=== PATIENT | female | born 1980 | race Caucasian/White ===

== ENCOUNTER → 2022-09-29 | Outpatient (CLI) | payer BC, SELFPAY ==
--- NOTE | 2022-09-29 14:33 | RAD_ITS ---
INDICATION: PSORIATIC ARTHROPATHY EXAMINATION/TECHNIQUE: X-RAY - XR Chest 2 Views COMPARISON: No previous relevant examinations available for comparison.. FINDINGS: LIFE-SUPPORT AND LINES: 1. None HEART AND VESSELS: The cardiac silhouette, pulmonary vasculature have normal appearance. No evidence of congestive failure. LUNGS AND PLEURAL SPACES: Lungs are clear. No focal infiltrate, consolidation or effusions. No evidence of pneumothorax. No pulmonary mass is noted. MEDIASTINUM AND HILAR REGIONS: No masses adenopathy noted. No areas of calcification. Visualized upper airway is normal in position. BONY ELEMENTS: No acute bony changes noted. RAD/Chest PA and Lateral IMPRESSION: 1. No evidence of acute cardiopulmonary process Electronically Signed: Nicolas Fitzgerald MD at 17:49 EST ,
--- NOTE | 2022-09-29 14:33 | RAD_ITS ---
INDICATION: PSORIATIC ARTHROPATHY EXAMINATION/TECHNIQUE: X-RAY - XR Pelvis 1 or 2 Views COMPARISON: None. FINDINGS: PELVIC BONES: No displaced fracture, destructive or sclerotic lesions. Note that overlapping bowel shadows may however obscure fine detail. Sacroiliac joints are unremarkable. No widening of the pubic symphysis. HIPS: The articular structures are unremarkable. No displaced fracture seen in this frontal view. Mild marginal osteophyte formation arising from the acetabular roof. No periarticular erosions noted.. SOFT TISSUES: No soft tissue swelling or gas. RAD/Pelvis 1 or 2 Views IMPRESSION: 1. No evidence of displaced pelvic or hip fracture. Mild osteophyte formation arising from the acetabular roof. Joint space maintained, no periarticular erosions noted. Electronically Signed: Nicolas Fitzgerald MD at 17:49 EST ,
[2022-09-29 18:13] LABS: Absolute Lymphocyte Count 1.98 X10^3/uL (0.83-4.51); Absolute Neutrophil Count 9.6 X10^3/uL (2.0-7.7); Basophil# 0.05 X10^3/uL; Basophil% 0.4 % (0-1); Eosinophil# 0.12 X10^3/uL; Hematocrit 36.3 % (37-47); Hemoglobin 11.9 g/dL (12.0-15.0); Lymphocyte # 1.98 X10^3/ul (0.83-4.51); Lymphocyte % 16.2 % (19-41); Mean Corp Hgb Conc 32.8 g/dL (32-36); Mean Corpuscular Hgb 28.9 pg (27.0-32.0); Mean Corpuscular Volume 88.1 fL (81-99); Monocyte# 0.47 X10^3/uL; Monocyte% 3.8 % (0-10); NRBC Flagged by Analyzer 0 % (0-5); Neutrophil # 9.56 X10^3/uL (2.7-7.7); Neutrophil % 78.3 % (47-70); Platelet Count 211 K/mm3 (150-450); RBC Distribution Width CV 14.7 % (11.6-14.6); RBC Distribution Width SD 46.4 fl (35.1-43.9); Red Blood Count 4.12 M/mm3 (4.2-5.4); White Blood Count 12.2 K/mm3 (4.4-11.0)
[2022-09-29 18:30] LABS: ALB/GLOB Ratio 0.8 RATIO (0.9-2.4); AST(SGOT) 15 U/L (15-37); Alanine Aminotransfer ALT/SGPT 20 U/L (13-56); Albumin, Serum 3.4 g/dL (3.2-5.0); Alkaline Phosphatase 76 U/L (45-117); Anion Gap 11 (5-15); BUN 34 mg/dL (7-18); BUN/Creat Ratio 27.9 RATIO (10-20); Calcium,Total 9.1 mg/dL (8.5-10.1); Chloride 105 mmol/L (98-107); Creatinine, Serum 1.22 mg/dL (0.55-1.02); EST Glomerular Filtration Rate 51 mL/min (>60); Est Glom Filt Rate - Afr Amer 62 mL/min (>60); Globulin 4.3 g/dL (2.2-4.2); Glucose 95 mg/dL (74-106); Potassium 3.4 mmol/L (3.5-5.1); Protein, Total 7.7 g/dL (6.4-8.2); Rheumatoid Factor < 10.0 IU/mL (<15); Sodium Level 140 mmol/L (136-145)
[2022-09-29 18:59] LABS: Erythrocyte Sedimentation Rate 34 mm/hr (0-30)
[2022-09-29 19:07] LABS: Hepatitis B Surface Antibody Non-Reactive; Hepatitis B Surface Antigen Non-Reactive (Nonreactive); Hepatitis C Antibody Non-Reactive (Nonreactive)
[2022-10-01 11:08] LABS: QNTFERON TB Mitogen Value > 10.00 IU/mL (.); QNTFERON TB Nil Value 0.02 IU/mL (.); QNTFERON TB1+ Ag Value 0.06 IU/mL (.); QNTFERON TB2+ Ag Value 0.05 IU/mL (.)
[2022-10-01 16:21] LABS: ANTINUCLEAR ANTIBODIES DIRECT Negative (Negative)
[2022-10-01 16:45] LABS: CCP IgG Antibodies 3 units (0-19); QNTIFERON TB Positive Criteria Negative (Negative)
== END | disposition home or self-care (01) ==
LOC: MTLAB 14:31
PROVIDERS: PCP Student in an Organized Health Care Education/Training Program; Referring Provider Internal Medicine Rheumatology; Visit Provider Internal Medicine Rheumatology
DX: L40.59 Other psoriatic arthropathy (principal); M79.7 Fibromyalgia
CPT/HCPCS: 36415; 71046; 72170; 80053; 85025; 85652; 86038; 86140; 86200; 86431; 86480; 86706; 86803; 87340

== ENCOUNTER → 2022-11-24 | Outpatient (CLI) | payer BC, SELFPAY ==
[2022-11-24 16:00] LABS: ALB/GLOB Ratio 0.8 RATIO (0.9-2.4); AST(SGOT) 16 U/L (15-37); Alanine Aminotransfer ALT/SGPT 24 U/L (13-56); Albumin, Serum 3.2 g/dL (3.2-5.0); Alkaline Phosphatase 70 U/L (45-117); Anion Gap 7 (5-15); BUN 26 mg/dL (7-18); BUN/Creat Ratio 22.8 RATIO (10-20); Calcium,Total 8.5 mg/dL (8.5-10.1); Chloride 108 mmol/L (98-107); Creatinine, Serum 1.14 mg/dL (0.55-1.02); EST Glomerular Filtration Rate 55 mL/min (>60); Est Glom Filt Rate - Afr Amer 66 mL/min (>60); Globulin 4.1 g/dL (2.2-4.2); Glucose 95 mg/dL (74-106); Potassium 3.9 mmol/L (3.5-5.1); Protein, Total 7.3 g/dL (6.4-8.2); Sodium Level 139 mmol/L (136-145)
== END | disposition home or self-care (01) ==
LOC: MTLAB 13:54
PROVIDERS: PCP Student in an Organized Health Care Education/Training Program; Referring Provider Internal Medicine Rheumatology; Visit Provider Internal Medicine Rheumatology
DX: L40.59 Other psoriatic arthropathy (principal)
CPT/HCPCS: 36415; 80053

== ENCOUNTER → 2022-12-22 | Outpatient (CLI) | payer BC, SELFPAY ==
[2022-12-22 15:12] LABS: Absolute Lymphocyte Count 1.75 X10^3/uL (0.83-4.51); Absolute Neutrophil Count 6.2 X10^3/uL (2.0-7.7); Basophil# 0.03 X10^3/uL; Basophil% 0.4 % (0-1); Eosinophil# 0.07 X10^3/uL; Eosinophils% 0.8 % (0-5); Hematocrit 34.4 % (37-47); Hemoglobin 10.4 g/dL (12.0-15.0); Lymphocyte # 1.75 X10^3/ul (0.83-4.51); Lymphocyte % 20.6 % (19-41); Mean Corp Hgb Conc 30.2 g/dL (32-36); Mean Corpuscular Hgb 25.9 pg (27.0-32.0); Mean Corpuscular Volume 85.8 fL (81-99); Mean Platelet Vol. 11.7 fl (6.2-12.0); Monocyte% 4.7 % (0-10); NRBC Flagged by Analyzer 0 % (0-5); Neutrophil # 6.21 X10^3/uL (2.7-7.7); Neutrophil % 73.1 % (47-70); Platelet Count 221 K/mm3 (150-450); RBC Distribution Width CV 13.8 % (11.6-14.6); RBC Distribution Width SD 42.7 fl (35.1-43.9); Red Blood Count 4.01 M/mm3 (4.2-5.4); White Blood Count 8.5 K/mm3 (4.4-11.0)
[2022-12-22 15:25] LABS: ALB/GLOB Ratio 0.8 RATIO (0.9-2.4); AST(SGOT) 15 U/L (15-37); Alanine Aminotransfer ALT/SGPT 24 U/L (13-56); Albumin, Serum 3.3 g/dL (3.2-5.0); Alkaline Phosphatase 62 U/L (45-117); Anion Gap 6 (5-15); BUN 29 mg/dL (7-18); BUN/Creat Ratio 25.2 RATIO (10-20); Calcium,Total 8.7 mg/dL (8.5-10.1); Chloride 109 mmol/L (98-107); Creatinine, Serum 1.15 mg/dL (0.55-1.02); EST Glomerular Filtration Rate 54 mL/min (>60); Est Glom Filt Rate - Afr Amer 66 mL/min (>60); Globulin 3.9 g/dL (2.2-4.2); Glucose 142 mg/dL (74-106); Potassium 3.8 mmol/L (3.5-5.1); Protein, Total 7.2 g/dL (6.4-8.2); Sodium Level 139 mmol/L (136-145)
== END | disposition home or self-care (01) ==
LOC: MTLAB 13:08
PROVIDERS: PCP Student in an Organized Health Care Education/Training Program; Referring Provider Internal Medicine Rheumatology; Visit Provider Internal Medicine Rheumatology
DX: L40.59 Other psoriatic arthropathy (principal); Z79.899 Other long term (current) drug therapy
CPT/HCPCS: 36415; 80053; 85025

== ENCOUNTER → 2023-01-05 | Outpatient (CLI) | payer BC, SELFPAY ==
[2023-01-05 18:06] LABS: Internal QC Validated? YES +Cl - CLEAR BKGD; Pregnancy, Urine Negative Negative
== END | disposition home or self-care (01) ==
LOC: MTLAB 14:41
PROVIDERS: PCP Student in an Organized Health Care Education/Training Program; Referring Provider Internal Medicine Rheumatology; Visit Provider Internal Medicine Rheumatology
DX: L40.59 Other psoriatic arthropathy (principal); M79.7 Fibromyalgia; Z79.899 Other long term (current) drug therapy
CPT/HCPCS: 81025

== ENCOUNTER → 2023-02-16 | Outpatient (CLI) | payer BC, SELFPAY ==
[2023-02-16 14:34] LABS: Absolute Lymphocyte Count 1.42 X10^3/uL (0.83-4.51); Absolute Neutrophil Count 7.3 X10^3/uL (2.0-7.7); Basophil# 0.02 X10^3/uL; Basophil% 0.2 % (0-1); Eosinophil# 0.07 X10^3/uL; Eosinophils% 0.8 % (0-5); Hematocrit 33.7 % (37-47); Hemoglobin 10.2 g/dL (12.0-15.0); Lymphocyte # 1.42 X10^3/ul (0.83-4.51); Lymphocyte % 15.6 % (19-41); Mean Corp Hgb Conc 30.3 g/dL (32-36); Mean Corpuscular Hgb 26.9 pg (27.0-32.0); Mean Corpuscular Volume 88.9 fL (81-99); Mean Platelet Vol. 11.2 fl (6.2-12.0); Monocyte# 0.28 X10^3/uL; Monocyte% 3.1 % (0-10); NRBC Flagged by Analyzer 0 % (0-5); Neutrophil # 7.26 X10^3/uL (2.7-7.7); Neutrophil % 79.9 % (47-70); Platelet Count 187 K/mm3 (150-450); RBC Distribution Width CV 19.9 % (11.6-14.6); RBC Distribution Width SD 61.2 fl (35.1-43.9); Red Blood Count 3.79 M/mm3 (4.2-5.4); White Blood Count 9.1 K/mm3 (4.4-11.0)
[2023-02-16 15:38] LABS: ALB/GLOB Ratio 0.8 RATIO (0.9-2.4); AST(SGOT) 25 U/L (15-37); Alanine Aminotransfer ALT/SGPT 28 U/L (13-56); Albumin, Serum 3.1 g/dL (3.2-5.0); Alkaline Phosphatase 70 U/L (45-117); Anion Gap 9 (5-15); BUN 28 mg/dL (7-18); BUN/Creat Ratio 26.2 RATIO (10-20); Calcium,Total 8.8 mg/dL (8.5-10.1); Chloride 109 mmol/L (98-107); Creatinine, Serum 1.07 mg/dL (0.55-1.02); EST Glomerular Filtration Rate 59 mL/min (>60); Est Glom Filt Rate - Afr Amer 71 mL/min (>60); Globulin 3.9 g/dL (2.2-4.2); Glucose 148 mg/dL (74-106); Sodium Level 140 mmol/L (136-145)
== END | disposition home or self-care (01) ==
LOC: MTLAB 13:56
PROVIDERS: PCP Student in an Organized Health Care Education/Training Program; Referring Provider Internal Medicine Rheumatology; Visit Provider Internal Medicine Rheumatology
DX: L40.59 Other psoriatic arthropathy (principal); L40.8 Other psoriasis; M79.7 Fibromyalgia; Z79.899 Other long term (current) drug therapy
CPT/HCPCS: 36415; 80053; 85025

== ENCOUNTER → 2023-03-30 | Outpatient (CLI) | payer BC, SELFPAY ==
[2023-03-30 17:50] LABS: Absolute Lymphocyte Count 1.56 X10^3/uL (0.83-4.51); Absolute Neutrophil Count 5.6 X10^3/uL (2.0-7.7); Basophil# 0.03 X10^3/uL; Basophil% 0.4 % (0-1); Eosinophil# 0.11 X10^3/uL; Eosinophils% 1.4 % (0-5); Hematocrit 33.1 % (37-47); Lymphocyte # 1.56 X10^3/ul (0.83-4.51); Lymphocyte % 20.2 % (19-41); Mean Corp Hgb Conc 30.2 g/dL (32-36); Mean Corpuscular Volume 89.2 fL (81-99); Mean Platelet Vol. 11.9 fl (6.2-12.0); Monocyte# 0.37 X10^3/uL; Monocyte% 4.8 % (0-10); NRBC Flagged by Analyzer 0 % (0-5); Neutrophil # 5.64 X10^3/uL (2.7-7.7); Neutrophil % 72.8 % (47-70); Platelet Count 225 K/mm3 (150-450); RBC Distribution Width CV 16.9 % (11.6-14.6); Red Blood Count 3.71 M/mm3 (4.2-5.4); White Blood Count 7.7 K/mm3 (4.4-11.0)
[2023-03-30 18:37] LABS: ALB/GLOB Ratio 0.8 RATIO (0.9-2.4); AST(SGOT) 19 U/L (15-37); Alanine Aminotransfer ALT/SGPT 30 U/L (13-56); Albumin, Serum 3.2 g/dL (3.2-5.0); Alkaline Phosphatase 84 U/L (45-117); Anion Gap 10 (5-15); BUN 24 mg/dL (7-18); Calcium,Total 8.9 mg/dL (8.5-10.1); Chloride 109 mmol/L (98-107); EST Glomerular Filtration Rate 52 mL/min (>60); Est Glom Filt Rate - Afr Amer 63 mL/min (>60); Globulin 3.9 g/dL (2.2-4.2); Glucose 159 mg/dL (74-106); Potassium 3.6 mmol/L (3.5-5.1); Protein, Total 7.1 g/dL (6.4-8.2); Sodium Level 142 mmol/L (136-145)
== END | disposition home or self-care (01) ==
PROVIDERS: PCP Student in an Organized Health Care Education/Training Program; Referring Provider Internal Medicine Rheumatology; Visit Provider Internal Medicine Rheumatology
DX: L40.59 Other psoriatic arthropathy (principal); M79.7 Fibromyalgia; Z79.899 Other long term (current) drug therapy
CPT/HCPCS: 36415; 80053; 85025

== ENCOUNTER → 2023-06-01 | Outpatient (CLI) | payer BC, SELFPAY ==
[2023-06-01 17:37] LABS: Absolute Lymphocyte Count 1.67 X10^3/uL (0.83-4.51); Absolute Neutrophil Count 5.6 X10^3/uL (2.0-7.7); Basophil# 0.03 X10^3/uL; Basophil% 0.4 % (0-1); Eosinophil# 0.14 X10^3/uL; Eosinophils% 1.8 % (0-5); Hematocrit 32.7 % (37-47); Hemoglobin 9.9 g/dL (12.0-15.0); Lymphocyte # 1.67 X10^3/ul (0.83-4.51); Lymphocyte % 21.2 % (19-41); Mean Corp Hgb Conc 30.3 g/dL (32-36); Mean Corpuscular Hgb 25.6 pg (27.0-32.0); Mean Corpuscular Volume 84.7 fL (81-99); Mean Platelet Vol. 11.9 fl (6.2-12.0); Monocyte# 0.44 X10^3/uL; Monocyte% 5.6 % (0-10); NRBC Flagged by Analyzer 0 % (0-5); Neutrophil # 5.55 X10^3/uL (2.7-7.7); Neutrophil % 70.6 % (47-70); Platelet Count 260 K/mm3 (150-450); RBC Distribution Width CV 14.9 % (11.6-14.6); RBC Distribution Width SD 45.7 fl (35.1-43.9); Red Blood Count 3.86 M/mm3 (4.2-5.4); White Blood Count 7.9 K/mm3 (4.4-11.0)
[2023-06-01 18:13] LABS: ALB/GLOB Ratio 0.8 RATIO (0.9-2.4); AST(SGOT) 16 U/L (15-37); Alanine Aminotransfer ALT/SGPT 30 U/L (13-56); Albumin, Serum 3.4 g/dL (3.2-5.0); Alkaline Phosphatase 98 U/L (45-117); Anion Gap 9 (5-15); BUN 32 mg/dL (7-18); BUN/Creat Ratio 25.6 RATIO (10-20); Calcium,Total 8.8 mg/dL (8.5-10.1); Chloride 109 mmol/L (98-107); Creatinine, Serum 1.25 mg/dL (0.55-1.02); EST Glomerular Filtration Rate 49 mL/min (>60); Est Glom Filt Rate - Afr Amer 60 mL/min (>60); Globulin 4.1 g/dL (2.2-4.2); Glucose 120 mg/dL (74-106); Potassium 3.3 mmol/L (3.5-5.1); Protein, Total 7.5 g/dL (6.4-8.2); Sodium Level 142 mmol/L (136-145)
== END | disposition home or self-care (01) ==
PROVIDERS: PCP Student in an Organized Health Care Education/Training Program; Referring Provider Internal Medicine Rheumatology; Visit Provider Internal Medicine Rheumatology
DX: L40.59 Other psoriatic arthropathy (principal); L40.8 Other psoriasis; Z79.899 Other long term (current) drug therapy
CPT/HCPCS: 36415; 80053; 85025

== ENCOUNTER → 2023-09-21 | Outpatient (CLI) | payer BC, SELFPAY ==
[2023-09-21 17:50] LABS: Absolute Lymphocyte Count 1.65 X10^3/uL (0.83-4.51); Absolute Neutrophil Count 7.8 X10^3/uL (2.0-7.7); Basophil# 0.03 X10^3/uL; Basophil% 0.3 % (0-1); Eosinophil# 0.07 X10^3/uL; Eosinophils% 0.7 % (0-5); Hematocrit 33.3 % (37-47); Hemoglobin 9.4 g/dL (12.0-15.0); Lymphocyte # 1.65 X10^3/ul (0.83-4.51); Lymphocyte % 16.4 % (19-41); Mean Corp Hgb Conc 28.2 g/dL (32-36); Mean Corpuscular Hgb 22.8 pg (27.0-32.0); Mean Corpuscular Volume 80.8 fL (81-99); Mean Platelet Vol. 11.9 fl (6.2-12.0); Monocyte# 0.51 X10^3/uL; Monocyte% 5.1 % (0-10); NRBC Flagged by Analyzer 0 % (0-5); Neutrophil # 7.76 X10^3/uL (2.7-7.7); Neutrophil % 77.1 % (47-70); Platelet Count 233 K/mm3 (150-450); RBC Distribution Width CV 15.9 % (11.6-14.6); RBC Distribution Width SD 46.5 fl (35.1-43.9); Red Blood Count 4.12 M/mm3 (4.2-5.4); White Blood Count 10.1 K/mm3 (4.4-11.0)
[2023-09-21 17:57] LABS: ALB/GLOB Ratio 0.8 RATIO (0.9-2.4); AST(SGOT) 13 U/L (15-37); Alanine Aminotransfer ALT/SGPT 19 U/L (13-56); Albumin, Serum 3.2 g/dL (3.2-5.0); Alkaline Phosphatase 92 U/L (45-117); Anion Gap 8 (5-15); BUN 18 mg/dL (7-18); BUN/Creat Ratio 17.8 RATIO (10-20); Calcium,Total 8.9 mg/dL (8.5-10.1); Chloride 109 mmol/L (98-107); Creatinine, Serum 1.01 mg/dL (0.55-1.02); EST Glomerular Filtration Rate 63 mL/min (>60); Est Glom Filt Rate - Afr Amer 76 mL/min (>60); Glucose 134 mg/dL (74-106); Protein, Total 7.2 g/dL (6.4-8.2); Sodium Level 142 mmol/L (136-145)
== END | disposition home or self-care (01) ==
PROVIDERS: PCP Student in an Organized Health Care Education/Training Program; Referring Provider Internal Medicine Rheumatology; Visit Provider Internal Medicine Rheumatology
DX: L40.59 Other psoriatic arthropathy (principal); M79.7 Fibromyalgia; Z79.899 Other long term (current) drug therapy
CPT/HCPCS: 36415; 80053; 85025

== ENCOUNTER → 2024-01-04 | Outpatient (CLI) | payer BC, SELFPAY ==
[2024-01-04 15:24] LABS: Absolute Lymphocyte Count 1.62 X10^3/uL (0.83-4.51); Absolute Neutrophil Count 6.1 X10^3/uL (2.0-7.7); Basophil# 0.03 X10^3/uL; Basophil% 0.4 % (0-1); Eosinophil# 0.11 X10^3/uL; Eosinophils% 1.3 % (0-5); Hematocrit 31.8 % (37-47); Hemoglobin 9.2 g/dL (12.0-15.0); Lymphocyte # 1.62 X10^3/ul (0.83-4.51); Lymphocyte % 19.4 % (19-41); Mean Corp Hgb Conc 28.9 g/dL (32-36); Mean Corpuscular Volume 79.5 fL (81-99); Mean Platelet Vol. 11.5 fl (6.2-12.0); Monocyte# 0.52 X10^3/uL; Monocyte% 6.2 % (0-10); NRBC Flagged by Analyzer 0 % (0-5); Neutrophil # 6.06 X10^3/uL (2.7-7.7); Neutrophil % 72.3 % (47-70); Platelet Count 234 K/mm3 (150-450); RBC Distribution Width CV 15.6 % (11.6-14.6); RBC Distribution Width SD 44.7 fl (35.1-43.9); White Blood Count 8.4 K/mm3 (4.4-11.0)
[2024-01-04 16:13] LABS: ALB/GLOB Ratio 0.9 RATIO (0.9-2.4); AST(SGOT) 20 U/L (15-37); Alanine Aminotransfer ALT/SGPT 29 U/L (13-56); Albumin, Serum 3.3 g/dL (3.2-5.0); Alkaline Phosphatase 79 U/L (45-117); Anion Gap 7 (5-15); BUN 20 mg/dL (7-18); BUN/Creat Ratio 21.6 RATIO (10-20); Calcium,Total 9.1 mg/dL (8.5-10.1); Chloride 108 mmol/L (98-107); Creatinine, Serum 0.92 mg/dL (0.55-1.02); EST Glomerular Filtration Rate 70 mL/min (>60); Est Glom Filt Rate - Afr Amer 84 mL/min (>60); Globulin 3.6 g/dL (2.2-4.2); Glucose 161 mg/dL (74-106); Potassium 3.5 mmol/L (3.5-5.1); Protein, Total 6.9 g/dL (6.4-8.2); Sodium Level 142 mmol/L (136-145)
== END | disposition home or self-care (01) ==
LOC: MTLAB 13:44
PROVIDERS: PCP Student in an Organized Health Care Education/Training Program; Referring Provider Internal Medicine Rheumatology; Visit Provider Internal Medicine Rheumatology
DX: L40.59 Other psoriatic arthropathy (principal); M79.7 Fibromyalgia; Z79.899 Other long term (current) drug therapy
CPT/HCPCS: 36415; 80053; 85025

== ENCOUNTER → 2024-01-11 | Outpatient (CLI) | payer BC, SELFPAY ==
[2024-01-11 17:52] LABS: Hematocrit 31.9 % (37-47); Hemoglobin 9.3 g/dL (12.0-15.0); Mean Corp Hgb Conc 29.2 g/dL (32-36); Mean Corpuscular Hgb 22.7 pg (27.0-32.0); Mean Corpuscular Volume 77.8 fL (81-99); Mean Platelet Vol. 11.5 fl (6.2-12.0); Platelet Count 251 K/mm3 (150-450); RBC Distribution Width CV 15.7 % (11.6-14.6); RBC Distribution Width SD 43.5 fl (35.1-43.9); White Blood Count 9.9 K/mm3 (4.4-11.0)
[2024-01-11 18:15] LABS: Microalbumin,Random Urine 15.2 mg/L (NO RANGE EST.); Microalbumin:Creatinine Ratio 14.9 mg/g CRE (<30 mg/g CRE)
[2024-01-11 18:29] LABS: ALB/GLOB Ratio 0.9 RATIO (0.9-2.4); AST(SGOT) 16 U/L (15-37); Alanine Aminotransfer ALT/SGPT 25 U/L (13-56); Albumin, Serum 3.3 g/dL (3.2-5.0); Alkaline Phosphatase 81 U/L (45-117); Anion Gap 7 (5-15); BUN 22 mg/dL (7-18); BUN/Creat Ratio 23.6 RATIO (10-20); Calcium,Total 8.6 mg/dL (8.5-10.1); Chloride 107 mmol/L (98-107); Cholesterol 147 mg/dL (200); Creatinine, Serum 0.93 mg/dL (0.55-1.02); EST Glomerular Filtration Rate 69 mL/min (>60); Est Glom Filt Rate - Afr Amer 83 mL/min (>60); Ferritin 11 ng/mL (8-252); Globulin 3.7 g/dL (2.2-4.2); Glucose 106 mg/dL (74-106); High Density Lipoprotein 34 mg/dL; Potassium 3.5 mmol/L (3.5-5.1); Sodium Level 139 mmol/L (136-145); Triglycerides 275 mg/dL; Very Low Density Lipoprotein 55 mg/dL (5-40)
[2024-01-11 18:31] LABS: Hemoglobin A1c 5.5 % (3.8-5.6)
[2024-01-13 16:10] LABS: QNTFERON TB Mitogen Value > 10.00 IU/mL (.); QNTFERON TB Nil Value 0.04 IU/mL (.); QNTFERON TB1+ Ag Value 0.08 IU/mL (.); QNTFERON TB2+ Ag Value 0.07 IU/mL (.); QNTIFERON TB Positive Criteria Negative (Negative)
== END | disposition home or self-care (01) ==
PROVIDERS: PCP Student in an Organized Health Care Education/Training Program; Referring Provider Internal Medicine Rheumatology; Visit Provider Internal Medicine Rheumatology
DX: I10 Essential (primary) hypertension (principal); L40.59 Other psoriatic arthropathy; E61.1 Iron deficiency; M79.7 Fibromyalgia; L40.8 Other psoriasis; Z79.899 Other long term (current) drug therapy
CPT/HCPCS: 36415; 80053; 80061; 82043; 82570; 82728; 83036; 85027; 86480

== ENCOUNTER 2025-01-13 08:00 | Day surgery (SDC) | payer BC, SELFPAY ==
--- NOTE | 2025-01-11 12:09 | PAT.ANESEVAL ---
Pre-Assessment Diagnosis/Proposed Procedure Planned Operative Procedure(s): KINDER PROCEDURE OF THE RIGHT FOOT AND RIGHT LATERAL ANKLE STABILIZATION. HARVEST OF BONE MARROW ASPIRATE CONCENTRATE Anesthesia History Anesthesia History - utilization management um nurse: Anesthesia History - utilization management um nurse Hx Hospitalization No 01/11/25 11:12 Any Problems With Anesthesia No 01/11/25 11:12 Cholinesterase deficiency No 01/11/25 11:12 You/Your Family Experience No 01/11/25 11:12 fever (hyperthermia) with Relationship Recent Exposure to Contagious Disease Does patient have nerve No 01/11/25 11:12 stimulator Patient instructed to have device shut off --Does patient have Pacemaker or ICD? When Was Last Pacemaker Check QUESTION #4 FULL TEXT: You/Your Family Experience fever (hyperthermia) with Anesthesia Last Oral Intake Last Oral intake: Last Oral Intake NPO since Meds taken in AM with sips of water? 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 - utilization management um nurse: PONV - utilization management um nurse Female Yes 01/11/25 11:12 HX of Motion Sickness No 01/11/25 11:12 HX of N/V After Surgery No 01/11/25 11:12 Non-Smoker Yes 01/11/25 11:12 Duration of Surgery greater Yes 01/11/25 11:12 than 60 minutes Number of Risk Factors 3 01/11/25 11:12 PONV Score Moderate Risk 01/11/25 11:12 Respiratory Assessment Respiratory Assessment - utilization management um nurse: Respiratory Tract Infection Hx - utilization management um nurse Hx Respiratory Tract Infection No 01/11/25 11:12 STOP Sleep Apnea STOP Sleep Apnea - utilization management um nurse: STOP Sleep Apnea - utilization management um nurse Hx Hypertension Yes: CONTROLLED WITH MED 01/11/25 11:12 Hx Sleep Apnea No 01/11/25 11:12 CPAP BIPAP Do you snore loudly (louder No 01/11/25 11:12 than talking or can be heard Do you often feel tired/ Yes 01/11/25 11:12 fatigued/ sleepy during daytime? Has anyone observed you stop No 01/11/25 11:12 breathing during sleep? STOP Results Positive 01/11/25 11:12 QUESTION #5 FULL TEXT : Do you snore loudly (louder than talking or can be heard through closed doors)? 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 Specify any problems Hx of Preganancy in last 3 No 01/11/25 11:12 Months Nurse Filling Out Transfusion DSCHRIBER 01/11/25 11:12 & Questions: Date: 01/11/25 01/11/25 11:12 Time: 11:13 01/11/25 11:12 Patient unable to answer at this time (ie. confused, unrespo /Reproduction History /Reproductive History - utilization management um nurse: /Reproductive Hx- utilization management um nurse Hx Now Gestational Age (in weeks): EDC: Hx Hx Para Hx Section SAB No 01/11/25 11:12 PFSH Medical History (Updated 01/11/25 @ 11:15 by Gayatri Bingham) Cardiology follow-up encounter Wears glasses Chipped tooth Depression Anxiety Diabetes Psoriatic arthritis Anemia High cholesterol Back pain Headache Gastric reflux Non-smoker History of pain when walking History of echocardiogram Hypertension Home Medications ?Medication ?Instructions ?Recorded ?Last Taken ?Type amlodipine 5 mg tablet 5 [place] 29901/02/25 Unknown History atorvastatin 10 mg tablet 10 mg PO 129901/02/25 Unknown History ferrous sulfate 325 mg (65 mg 325 [place] PO 29901/02/25 Unknown History iron) tablet (FeroSul) hydrochlorothiazide 25 mg tablet 25 mg PO 129901/02/25 Unknown History losartan 100 mg tablet 100 mg PO 129901/02/25 Unknown History omeprazole 40 mg capsule,delayed 40 mg PO 29901/02/25 Unknown History release spironolactone 25 mg tablet 25 mg PO 129901/02/25 Unknown History venlafaxine 225 mg tablet,extended 225 mg PO 129901/02/25 Unknown History release 24 hr Allergy/AdvReac Type Severity Reaction Status Date / Time Hand 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 Sinus rhythm 99 bpm. Echo (EF%) pertinent findings: 01/16/2020. EF 55 to 60%. Normal wall motion. Recommendation Anesthesia Recommendation Anesthesia recommendation: OPTIMIZED for anesthesia
[2025-01-13] VITALS (14 sets, daily range): BP systolic 126–150; BP diastolic 58–99; PULSE 87–115; RESP 16–18; TEMP 36.2–37.1; O2SAT 82–99; BMI 42.7
[2025-01-13] MEDS: Lactated Ringers 1,000 ML 15 ML IV (08:30)
[2025-01-13 08:40] LABS: Internal QC Validated? YES +Cl - CLEAR BKGD; Pregnancy, Urine Negative Negative
--- NOTE | 2025-01-13 08:45 | PRE.ANES_ITS ---
ASA Classification* ASA Classification ASA Classification: 3 Assessment & Plan Anesthesia* Anesthesia Assessment Anesthesia Assessment: Discussed sedation and/or anesthesia options, risks, benefits, and alternatives with patient/parents/legal guardian/POA. Questions invited. The patient/parents/legal guardian/POA seems to understand and agrees to proceed with anesthesia plan. Reviewed the physical assessment, medical history, allergy history and patient home medications list prior to surgery/procedure/anesthetic and documented any changes. Performed airway and anesthesia risk assessments. Anesthesia Type Anesthesia Type: General (RSI/Glidescope) and Block (Postop Block) Anesthesia Focused Assessment* Temperature: 98.7 F Pulse Rate: 115 Blood Pressure: 150/96 Respiratory Rate: 16 Pulse Ox: 98 Airway Assessment Mouth opens: >3 cm Mallampati Score: III Focused Labs Anesthesia Preop lab: CBC WBC 9.9 K/mm3 (4.4-11.0) 01/11/24 14:18 01/11/24 RBC 4.10 M/mm3 (4.2-5.4) L 01/11/24 14:18 01/11/24 Hgb 9.3 g/dL (12.0-15.0) L 01/11/24 14:18 01/11/24 Hct 31.9 % (37-47) L 01/11/24 14:18 01/11/24 Plt Count 251 K/mm3 (150-450) 01/11/24 14:18 01/11/24 CHEMISTRY Potassium 3.5 mmol/L (3.5-5.1) 01/11/24 14:18 01/11/24 Sodium 139 mmol/L (136-145) 01/11/24 14:18 01/11/24 BUN 22 mg/dL (7-18) H 01/11/24 14:18 01/11/24 Creatinine 0.93 mg/dL (0.55-1.02) 01/11/24 14:18 01/11/24 Glucose 106 mg/dL (74-106) 01/11/24 14:18 01/11/24 COAG Urine Test Negative Negative 01/13/25 08:15 01/13/25 Pre-Assessment Diagnosis/Proposed Procedure Planned Operative Procedure(s): KINDER PROCEDURE OF THE RIGHT FOOT AND RIGHT LATERAL ANKLE STABILIZATION. 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 When Was Last Pacemaker Check QUESTION #4 FULL TEXT: You/Your Family Experience fever (hyperthermia) with Anesthesia Last Oral Intake Last Oral intake: Last Oral Intake NPO since 00:00 01/13/25 08:37 Meds taken in AM with sips of No 01/13/25 08:37 water? 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: PONV - custom shoe designer and maker Female Yes 01/11/25 11:12 HX of Motion Sickness No 01/11/25 11:12 HX of N/V After Surgery No 01/11/25 11:12 Non-Smoker Yes 01/11/25 11:12 Duration of Surgery greater Yes 01/11/25 11:12 than 60 minutes Number of Risk Factors 3 01/11/25 11:12 PONV Score Moderate Risk 01/11/25 11:12 Height & Weight Height & Weight: Anesthesia: Height & Weight Height 5 ft 4 in 01/13/25 08:37 Weight: 112.945 kg 01/13/25 08:37 Body Mass Index (BMI) 42.7 01/13/25 08:37 Respiratory Assessment Respiratory Assessment - custom shoe designer and maker: Respiratory Tract Infection Hx - custom shoe designer and maker Hx Respiratory Tract Infection No 01/11/25 11:12 STOP Sleep Apnea STOP Sleep Apnea - custom shoe designer and maker: STOP Sleep Apnea - custom shoe designer and maker Hx Hypertension Yes: CONTROLLED WITH MED 01/11/25 11:12 Hx Sleep Apnea No 01/11/25 11:12 CPAP BIPAP Do you snore loudly (louder No 01/11/25 11:12 than talking or can be heard Do you often feel tired/ Yes 01/11/25 11:12 fatigued/ sleepy during daytime? Has anyone observed you stop No 01/11/25 11:12 breathing during sleep? STOP Results Positive 01/11/25 11:12 QUESTION #5 FULL TEXT : Do you snore loudly (louder than talking or can be heard through closed doors)? 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 Specify any problems Hx of Preganancy in last 3 No 01/11/25 11:12 Months Nurse Filling Out Transfusion DSCHRIBER 01/11/25 11:12 & Questions: Date: 01/11/25 01/11/25 11:12 Time: 11:13 01/11/25 11:12 Patient unable to answer at this time (ie. confused, unrespo /Reproduction History /Reproductive History - custom shoe designer and maker: /Reproductive Hx- custom shoe designer and maker Hx Now Gestational Age (in weeks): EDC: Hx Hx Para Hx Section SAB No 01/11/25 11:12 Active Medications Active Medications: Current Medications Generic Name Dose Route Start Last Admin Trade Name Freq PRN Reason Stop Dose Admin Cefazolin Sodium 2 gm/ Sodium 110 mls @ 150 mls/hr 01/13/25 09:45 Chloride IV 01/13/25 10:28 INTRAOP ONE Lactated Ringer's 1,000 mls @ 15 mls/hr 01/13/25 08:30 01/13/25 08:30 IV 15 mls/hr .Q48H TAJ Administration PFSH Medical History Cardiology follow-up encounter Wears glasses Chipped tooth Depression Anxiety Diabetes Psoriatic arthritis Anemia High cholesterol Back pain Headache Gastric reflux Non-smoker History of pain when walking History of echocardiogram Hypertension Home Medications ?Medication ?Instructions ?Recorded ?Last Taken ?Type amlodipine 5 mg tablet 5 [place] PO 03001/02/25 History atorvastatin 10 mg tablet 10 mg PO 129901/02/2501/12 History ferrous sulfate 325 mg (65 mg 325 [place] 29901/02/25 01/12/25 History iron) tablet (FeroSul) hydrochlorothiazide 25 mg tablet 25 mg PO 129901/12/25 History losartan 100 mg tablet 100 mg PO 129901/02/25/01/22 History omeprazole 40 mg capsule,delayed 40 [place] 29901/12/25 History release spironolactone 25 mg tablet 25 mg PO 129901/02/25 History venlafaxine 225 mg tablet,extended 225 mg PO 01/2201/12/25 History release 24 hr Allergy/AdvReac Type Severity Reaction Status Date / Time Hand 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
[2025-01-13] MEDS: Cefazolin 2 GM in 0.9% Normal Saline (100mL Bag) 100 ML IV (09:40)
[2025-01-13] MEDS: Bupivacaine Mpf 0.5% 30 ML VIAL (09:40)
--- NOTE | 2025-01-13 09:45 | RAD_ITS ---
PROCEDURE: FOOT 2 VIEWS 01/13/2025 REASON FOR EXAM: KIDNER PROCEDURE OF RIGHT FOOT, HARVEST OF BONE MARROW TECHNIQUE: Fluoroscopy with 9 spot images right foot FINDINGS: Fluoroscopy time 106.9 seconds Cumulative dose 2.65 mGy 9 spot images with surgical Weitlaner retractor at the medial hind midfoot. Please see operative report for further detail. RAD/Foot 2 Views IMPRESSION: Fluoroscopy as above Reading Location: [id number]
[2025-01-13] MEDS: Thrombin 5,000 IU Kit (PSA) 5,000 IU Vial 5000 IU TOPICAL (09:50)
[2025-01-13] MEDS: Calcium Chloride 1 GM/10 ML Syringe (09:50)
[2025-01-13] MEDS: Heparin 10,000 UNITS/10 ML Vial 10000 UNITS (09:50)
--- NOTE | 2025-01-13 11:25 | PCM.OPRPT ---
Problems Associated Problem List Diagnoses (1) Other instability, right ankle: (2) Posterior tibial tendinitis, right leg: Operative Report (Standard) Operative Information Date of Procedure: 01/13/25 Pre-Operative Diagnosis: 1. Ankle instability, right lower extremity 2. Posterior tibial tendinitis, right lower extremity Post-Operative Diagnosis: Same as preoperative diagnosis Surgery/Procedure Performed: Procedure #1: Bone marrow aspirate concentrate harvest, right lower extremity Procedure #2: Kidner procedure, right lower extremity Procedure #3. Lateral ankle stabilization, right lower extremity ophthalmic surgical assistant: Yes Operations Technician: Hoa Rodriguez Tasks completed by assistant golf professional: Closing Additional acute care nursing assistant?: No Type of Anesthesia: General/Regional and Local RN Documented Start/Stop Times: Operation Date: 01/13/25 09:45 Case Time Into Pre-Op 01/13/25 08:06 Out of Pre-Op 01/13/25 09:28 Anesthesia Start 01/13/25 09:30 Into Room 01/13/25 09:30 Procedure Start 01/13/25 09:50 Procedure End 01/13/25 11:47 Anesthesia End 01/13/25 11:51 Out of Room 01/13/25 11:51 Into Recovery 01/13/25 12:00 Out of Recovery 01/13/25 14:06 Into Phase II Recovery 01/13/25 14:07 Out of Phase II 01/13/25 15:01 Procedure Start Time: 09:50 Procedure Stop Time: 11:47 Select all DRAINS/GRAFTS/IMPLANTS that apply: Tissue Tissue details: Bone marrow aspirate concentrate, 1 cc via flow and Implanted device Implanted device details: CitraFix anchors 3.5 mm and 2.9 mm Special Medications: For anesthesia Estimated Blood Loss: 35 cc Fluids Replaced: Per anesthesia Specimen collected: No Description of surgery: Indications For Operation: Mrs. Mahan is a 44-year-old who was admitted to [facility] for elective surgery to the right lower extremity. Patient was seen in private office for surgical consultation after advanced imaging showed concern for posterior tibial tendon tendinosis as well as ATFL tear. Patient has been suffering from right lower extremity ankle pain for some time. She has exhausted all conservative treatment consisting of shoe gear modification, bracing, steroid injections, [id number] pain medication and home physical therapy. Due to failing conservative treatment it was deemed necessary at this time due to the findings on the MRI and the patient's continued pain to move forward with the Kidner procedure and ATFL repair to the right lower extremity. Due to consistent pain to right lower extremity it was deemed necessary at this time to take the patient the operating room to perform the above procedures to help get the patient back on her feet and help heal her constant pain. The nature of the problem, anticipated procedures, postop recovery/convalences and risk/complications include but not limited to infection, wound healing complications, digital amputation, hypertrophic scarring, numbness, tingling, chronic pain, CRPS, over and under correction, recurrence of deformity, DVT and or PE and the need for further surgery have been discussed in great detail with the patient. All questions have been answered to the patient's satisfaction. There are no guarantees given as to the outcome of the procedure. Description of Procedure: Under mild sedation, the patient was brought into the operating room and placed on the operating table in supine position. Once the patient was under general anesthesia with endotracheal tube, the right lower extremity was blocked using approximately 20 cc 0.5% Marcaine plain. Patient will save a popliteal block in the PACU after the procedure per anesthesia. Please see anesthesia notes for further information. Next, a well-padded thigh tourniquet was applied to the right lower extremity. Next, the right lower extremity was prepped and draped in normal aseptic manner. Next, a timeout was then undertaken verifying the correct patient, extremity, visibility of preoperative markings, availability of the equipment. Next, attention was directed to the right lower extremity. Using a 4 inch Esmarch, right lower extremity was exsanguinated and elevated to 60 degrees for 1 minute. Procedure #1: Bone marrow aspirate concentrate harvest, right lower extremity Next, attention was directed to the lateral aspect of the right heel. Using a Jamshidi needle and mallet, the Jamshidi needle was inserted to the lateral wall of the calcaneus without incident. Approximately 40 to 45 cc of bone marrow aspirate concentrate was harvested, passed the back table to be used later on in the procedure. The penetration area of the needle was flushed and closed with 3-0 nylon in simple erupted suture technique. Procedure #2: Kidner procedure, right lower extremity Next, attention was directed to the medial aspect of the right foot at the level of the accessory navicular. Large C-arm fluoroscopy was used to marilia out the incision to confirm location. Once confirmed, sterile skin marker was used to make a incision line across the posterior tibial tendon encompassing the accessory navicular bone. Using a #15 blade a full-thickness edge down to subcutaneous tissue was performed. Continued blunt dissection carried down to the level of the os naviculare which was identified as a gorilla ossicle. The bone was very soft with attachment of the posterior tibial tendon. Posterior tibial tendon was reflected down to expose the accessory bone. Using a sagittal saw on #111 blade an osteotomy was performed removing approximately 25% of the accessory navicular. There showed less than 30% uncovering of the TN joint after removal. Next 2 implants, Citra fix 3.5 mm and 2.9 mm implants were placed in the newly cut navicular per the chief resource officer recommendation with the rep in the room. Attempt was to reapproximate the posterior tibial tendon but was too short due to the size of the navicular that was removed. The posterior tibial tendon was lengthened with a dorsal and inferior incision allowing approximately 5 mm of length achieved. Using the #2 FiberWire that was in the implants the posterior tibial tendon was reapproximated and sutured into place using double hand suture technique as well as retubularized and the tendon and hand tying back on the insertion. The foot had a plantarflexion of the inversion attitude after placement. The incision was flushed with copious ounce normal saline. Procedure #3. Lateral ankle stabilization, right lower extremity Next, attention was directed to the lateral ankle at the level of the fibula. Using a [place] and large C-arm fluoroscopy the superior border of the fibula was marked out. Once identified the sterile skin marker was used to line out the incision. A #15 blade was used to make a full-thickness incision down to subcutaneous tissue. Continued blunt dissection was carried down to the level of the periosteum. Using the [place] a pocket was made and advanced superiorly to allow a safe area to open the periosteum to create a flap. The face of the fibula was identified and roughed up using a rongeur and hand rasp. The area incision was flushed with copious normal saline. Using a ruler and skin marker 2 locations were mapped out 5 mm from the [place] and then 1 cm from the initial implant were made with sterile skin marker. Next, the 3.5 mm suture fix implants x 2, with a #2 FiberWire, were implanted into the fibula per the chief resource officer's recommendations with the rep in the room. Next the Brostr?m was performed using pants over vest suture technique which was also hand tied in place. Next, the Mcgrath modification was performed proximally to encompass the inferior retinaculum to allow for a more stable repair. Next, the ankle was stressed and showed no evidence of talar tilt as it did prior to the procedure which was approximately greater than 5 degrees. Again the incision was flushed with copious normal saline. The posterior tibial tendon sheath was reapproximated closed using 2-0 Vicryl in a running locking suture technique. The subcutaneous layer on the medial side was reapproximated closed using 3-0 Vicryl and running locking suture technique. Next the lateral incision was reapproximated closed deeply using 2-0 Vicryl and running locking suture technique. The subcutaneous layer was reapproximated and closed using 3-0 Vicryl in running locking suture technique. Next, the right thigh tourniquet was deflated at this time and reperfusion was noted instantly to the right lower extremity. The skin was reapproximated and closed both incisions with 3-0 nylon in simple interrupted suture technique. The bone marrow aspirate concentrate was injected at the level of the posterior tibial tendon insertion and at the level of the ATFL and ankle without incident. PPP plasma was sprayed across all incisions. 2 cc of via flow was injected to both incisions to help with healing and decrease scar formation. The right lower extremities were cleaned and patted dry. All incisions were dressed with Betadine soaked Adaptic, dry sterile dressing and a double layer Cardenas AO splint in slight dorsiflexion with inversion due to the posterior tibial tendon repair was donned to the right lower extremity. The patient tolerated the procedure and anesthesia well and apparent satisfactory condition and was transported to the PACU for further monitoring prior to discharge home. Vital signs stable and vascular status intact to all digits bilateral. Post Operative Plan: Weightbearing: Nonweightbearing to the right lower extremity. Full weightbearing left lower extremity. Nonweightbearing will be assisted with crutches. Antibiotics: 2 g Ancef through the IV DVT Prophylaxis: 81 mg aspirin Delgado: None Dressing: PPP spray, Betadine soaked Adaptic, dry sterile dressing double layer Cardenas AO splint, right lower extremity X-Rays: Post-operative films taken on the operating room. Pain Medication: Oxycodone 5 mg, Tylenol 1000 mg Follow-up: Patient will follow-up in 1 week for dressing change in private office with Dr. Abad. Surgical Findings: 1. Large accessory navicular that was encompassing approximately 1 cm of the posterior tibial tendon. This made reattachment difficult and had to lengthen the posterior tibial tendon and applied an extra anchor to allow for better attachment of the insertion of the posterior tibial tendon. Overall satisfactory repair in anatomic position. 2. Stressing of the ankle the right lower extremity showed greater then 5 degrees of instability to the ankle. After implantation and repair of the ATFL with the Mcgrath modification there showed no ankle instability when the ankle was stressed. Complications Complications: No Admit VTE Documentation VTE Present on Admission: No VTE Mechan Device Prophylaxis: SCD's VTE Pharm Prophylaxis ordered?: Yes
--- NOTE | 2025-01-13 11:59 | PCM.POST.ANE ---
Anesthesia: Postop Eval I Current Vital Signs Temperature: 98.4 F Pulse Rate: 92 Blood Pressure: 132/82 Respiratory Rate: 16 Pulse Ox: 93 Oxygen Delivery Method: Nasal Cannula Oxygen Flow Rate (L/min): 2 Assessment Airway patent: Yes Spontaneous unlabored respirations: Yes Mental status: Awake nausea: No Vomiting: No Anesthesia Complication: No Fluid Hydration Crystalloid volume administer (ml): 1,400 Total IV fluid infused: 1,400 Progress Note Anesthesia document: Postop Eval 1 completed: Yes
[2025-01-13] MEDS: Ipratropium/Albuterol Sulfate 3 ML AMPUL.NEB INHALATION (12:49)
--- NOTE | 2025-01-13 12:57 | POSTOPAN2_ITS ---
Anesthesia Postop Eval I Sum Postop Eval Completion status Anesthesia document: Postop Eval 1 completed: Yes Anesthesia Postop Eval I Summary Anesthesia Postop Eval I Summary: Anesthesia Postop Eval I: Assessment Summary Airway patent Yes 01/13/25 12:00 [email or web address] Spontaneous unlabored Yes 01/13/25 12:00 [email or web address] respirations Mental status Awake 01/13/25 12:00 [email or web address] nausea No 01/13/25 12:00 [email or web address] Vomiting No 01/13/25 12:00 [email or web address] Anesthesia Postop Eval I: Fluid Summary Crystalloid volume administer 1,400 01/13/25 12:00 [email or web address] (ml) Colloids volume administered ( ml) Blood Product volume administered (ml) Total IV fluid infused 1,400 01/13/25 12:00 [email or web address] Anesthesia Postop Eval I: Summary Notes Anesthesia Complication No 01/13/25 12:00 [email or web address] Anesthesia Complication Comment: Post-operative progress note Anesthesia: Postop Eval II Evaluation Mental status: Awake Pain Level: 0 nausea: No Vomiting: No
--- NOTE | 2025-01-13 12:57 | PCM.POSTANE2 ---
Anesthesia Postop Eval I Sum Postop Eval Completion status Anesthesia document: Postop Eval 1 completed: Yes Anesthesia Postop Eval I Summary Anesthesia Postop Eval I Summary: Anesthesia Postop Eval I: Assessment Summary Airway patent Yes 01/13/25 12:00 [email or web address] Spontaneous unlabored Yes 01/13/25 12:00 [email or web address] respirations Mental status Awake 01/13/25 12:00 [email or web address] nausea No 01/13/25 12:00 [email or web address] Vomiting No 01/13/25 12:00 [email or web address] Anesthesia Postop Eval I: Fluid Summary Crystalloid volume administer 1,400 01/13/25 12:00 [email or web address] (ml) Colloids volume administered ( ml) Blood Product volume administered (ml) Total IV fluid infused 1,400 01/13/25 12:00 [email or web address] Anesthesia Postop Eval I: Summary Notes Anesthesia Complication No 01/13/25 12:00 [email or web address] Anesthesia Complication Comment: Post-operative progress note Anesthesia: Postop Eval II Evaluation Mental status: Awake Pain Level: 0 nausea: No Vomiting: No
[2025-01-13] MEDS: Ketorolac 30 MG/ML Syringe IV (13:34)
[2025-01-13] MEDS: oxyCODONE 5 MG Tablet PO (14:31)
[2025-01-13] MEDS: Acetaminophen 325 MG Tablet PO (14:31)
== END 2025-01-13 15:02 | disposition home or self-care (01) ==
LOC: SDC 08:04 → AC 08:05
PROVIDERS: Anesthesiology; PCP Student in an Organized Health Care Education/Training Program; Referring Provider Podiatrist Foot & Ankle Surgery; Visit Provider Podiatrist Foot & Ankle Surgery
PROC: (CPT 29999; principal; 2025-01-13 09:30)
DX: M25.371 Other instability, right ankle (principal); L40.50 Arthropathic psoriasis, unspecified; E66.01 Morbid (severe) obesity due to excess calories; Z68.41 Body mass index [BMI] 40.0-44.9, adult; E11.9 Type 2 diabetes mellitus without complications; M76.821 Posterior tibial tendinitis, right leg; I10 Essential (primary) hypertension; K21.9 Gastro-esophageal reflux disease without esophagitis; F32.A Depression, unspecified; F41.9 Anxiety disorder, unspecified; E78.00 Pure hypercholesterolemia, unspecified; D64.9 Anemia, unspecified; Z79.899 Other long term (current) drug therapy
CPT/HCPCS: 27695; 28238; 38220; 01470; 64445; 73620; 76000; 81025; C1713